=== PATIENT | male | born 1945 | race Caucasian/White ===

== ENCOUNTER 2019-06-08 10:42 | Emergency (ER) | payer BC, MEDICAID ==
[2019-06-08 11:27] LABS: ADD MAN DIFF? NO
[2019-06-08 11:32] LABS: BASOPHIL # 0.1 10^3/ul (0.0-0.1); BASOPHILS % 0.9 % (0.0-2.0); EOSINOPHILS # 0.3 10^3/ul (0.0-0.5); EOSINOPHILS % 3.1 % (0.0-7.0); HEMATOCRIT 46.3 % (42.0-52.0); HEMOGLOBIN 14.9 g/dl (14.0-18.0); LYMPHOCYTES # 2.6 10^3/ul (0.8-2.9); LYMPHOCYTES % 30.3 % (15.0-51.0); MEAN CORPUSCULAR HEMOGLOBIN 26.8 pg (29.0-33.0); MEAN CORPUSCULAR HGB CONC 32.2 g/dl (32.0-37.0); MEAN CORPUSCULAR VOLUME 83.1 fl (82.0-101.0); MEAN PLATELET VOLUME 10.9 fl (7.4-10.4); MONOCYTE # 0.7 10^3/ul (0.3-0.9); MONOCYTES % 8.1 % (0.0-11.0); NEUTROPHIL # 4.9 10^3/ul (1.6-7.5); NEUTROPHILS % 57.4 % (39.0-77.0); PLATELET COUNT 291 10^3/UL (140-415); RED BLOOD COUNT 5.57 10^6/ul (4.70-6.10); RED CELL DISTRIBUTION WIDTH 12.9 % (11.5-14.5)
[2019-06-08 11:32] LABS: WHITE BLOOD COUNT 8.6 10^3/ul (4.8-10.8)
[2019-06-08] MEDS: LIDOCAINE/MYLANTA 40 ML BTL PO (11:36)
[2019-06-08] MEDS: BELLADONNA/PHENOBARBITAL TAB PO (11:36)
[2019-06-08] MEDS: ONDANSETRON 4 MG INJ IV (11:36)
[2019-06-08] MEDS: morphine 4 MG/ML VIAL IV (11:37)
[2019-06-08 11:50] LABS: ALANINE AMINOTRANSFERASE 126 IU/L (13-69); ALBUMIN 4.7 g/dl (3.3-4.9); ALBUMIN/GLOBULIN RATIO 1.34; ALKALINE PHOSPHATASE 215 IU/L (42-121); ANION GAP 9 (5-13); ASPARTATE AMINO TRANSFERASE 69 IU/L (15-46); BILIRUBIN,INDIRECT 0.7 mg/dl (0-1.1); BILIRUBIN,TOTAL 0.7 mg/dl (0.2-1.3); BLOOD UREA NITROGEN 16 mg/dl (7-20); CALCIUM 10.2 mg/dl (8.4-10.2); CARBON DIOXIDE 29 mmol/L (21-31); CHLORIDE 104 mmol/L (97-110); CREATININE 0.79 mg/dl (0.61-1.24); GLUCOSE 76 mg/dl (70-220); SODIUM 142 mmol/L (135-144); TOTAL PROTEIN 8.2 g/dl (6.1-8.1)
[2019-06-08 11:51] LABS: INR 0.87; PROTIME 11.9 Sec (11.9-14.9); PT RATIO 0.9
[2019-06-08 11:52] LABS: PARTIAL THROMBOPLASTIN TIME 28.6 Sec (23.0-35.0)
[2019-06-08] MEDS: IOHEXOL 300MG/ML 30 ML BTL ×3 (12:59→13:00)
[2019-06-08] MEDS: SOD CHLORIDE 0.9% 100 ML (13:00)
== END 2019-06-08 14:00 | disposition home or self-care (01) ==
LOC: E/R 10:42
DX: R16.0 Hepatomegaly, not elsewhere classified (principal); I10 Essential (primary) hypertension; E11.9 Type 2 diabetes mellitus without complications; Z79.4 Long term (current) use of insulin
CPT/HCPCS: 74177; 80053; 85025; 85610; 85730; 96374; 96375; 99285-25

== ENCOUNTER 2019-07-22 07:39 | Inpatient (IN) | payer BC ==
[2019-07-22] MEDS: morphine 2 MG INJ IV (10:24)
[2019-07-22] MEDS ORDERED: ONDANSETRON 4 MG INJ IV ×2 (13:00→13:30)
[2019-07-22] MEDS ORDERED: ACETAMINOPHEN 325 MG TAB PO ×2 (13:00→13:30)
[2019-07-22] MEDS ORDERED: DOCUSATE SODIUM 100 MG CAP PO (13:30)
[2019-07-22] MEDS ORDERED: MAGNESIUM HYDROXIDE 30ML CUP PO (13:30)
[2019-07-22] MEDS ORDERED: BISACODYL 10 MG SUPP PR (13:30)
[2019-07-22] MEDS ORDERED: BISACODYL (EC) 5 MG TAB PO (13:30)
[2019-07-22] MEDS ORDERED: NACL 0.9% 3 ML SYG IV (13:30)
[2019-07-22] MEDS: SOD CHLORIDE 0.9% 1,000 ML IV ×2 (16:03→23:04)
[2019-07-22] MEDS: FAMOTIDINE 20 MG INJ IV ×2 (16:03→20:18)
[2019-07-22] MEDS: INSULIN ASPART [NOVOLOG] 3 ML PEN SC ×2 (17:39→20:18)
[2019-07-22] MEDS: INSULIN GLARGINE [LANTus] (100 UNITS/ML) SYG SC (20:16)
[2019-07-23] MEDS: ACCU-CHEK XX (02:00)
[2019-07-23] MEDS: INSULIN ASPART [NOVOLOG] 3 ML PEN SC ×5 (05:00→20:32)
[2019-07-23] MEDS: FAMOTIDINE 20 MG INJ IV ×2 (09:04→20:30)
[2019-07-23] MEDS: SOD CHLORIDE 0.9% 1,000 ML IV ×2 (09:04→18:11)
[2019-07-23] MEDS: LIDOCAINE 1% (MPF) 5 ML VIAL (11:13)
[2019-07-23] MEDS: FENTAnyl 50 MCG/ML VIAL (11:14)
[2019-07-23] MEDS: MIDAZOLAM 1 MG/ML 2 ML INJ (11:14)
[2019-07-23] MEDS: morphine 2 MG INJ IV ×2 (12:52→19:37)
[2019-07-23] MEDS ORDERED: DEXAMETHASONE 4 MG/ML 5 ML INJ (15:08)
[2019-07-23] MEDS ORDERED: ROCURONIUM 50 MG INJ (15:08)
[2019-07-23] MEDS ORDERED: CEFAZOLIN 1 GM INJ (15:08)
[2019-07-23] MEDS ORDERED: ONDANSETRON 4 MG INJ (15:08)
[2019-07-23] MEDS ORDERED: FENTAnyl 50 MCG/ML VIAL (15:08)
[2019-07-23] MEDS ORDERED: MIDAZOLAM 1 MG/ML 2 ML INJ (15:08)
[2019-07-23] MEDS ORDERED: NEOSTIGMINE 3 MG/3 ML SYRINGE (15:08)
[2019-07-23] MEDS ORDERED: GLYCOPYRROLATE 0.4 MG INJ (15:08)
[2019-07-23] MEDS ORDERED: PROPOFOL 20 ML (15:08)
[2019-07-23] MEDS: CIPROFLOXACIN 400MG/D5W 200 ML IVPB (15:13)
[2019-07-23] MEDS: INDOMETHACIN 50 MG SUPP PR (15:30)
[2019-07-23] MEDS ORDERED: SUGAMMADEX SODIUM 200 MG/2 ML VIAL IV (16:21)
[2019-07-23] MEDS ORDERED: GLUCAGON 1 MG INJ IM (17:30)
[2019-07-23] MEDS ORDERED: GLUCOSE GEL 15 GRAM TUBE PO ×2 (17:30)
[2019-07-23] MEDS ORDERED: DEXTROSE 50% 50 ML SYRINGE IV ×2 (17:30)
[2019-07-23] MEDS ORDERED: GLUCOSE GEL 15 GRAM TUBE BUCCAL (17:30)
[2019-07-23] MEDS: INSULIN GLARGINE [LANTus] (100 UNITS/ML) SYG SC (20:35)
[2019-07-24] MEDS: SOD CHLORIDE 0.9% 1,000 ML IV ×3 (01:05→22:03)
[2019-07-24] MEDS: ACCU-CHEK XX (02:00)
[2019-07-24] MEDS: INSULIN ASPART [NOVOLOG] 3 ML PEN SC ×4 (07:00→20:59)
[2019-07-24] MEDS: FAMOTIDINE 20 MG INJ IV ×2 (08:27→20:59)
[2019-07-24] MEDS: morphine 2 MG INJ IV (16:08)
[2019-07-24] MEDS: INSULIN GLARGINE [LANTus] (100 UNITS/ML) SYG SC (20:58)
[2019-07-25] MEDS: SOD CHLORIDE 0.9% 1,000 ML IV ×2 (01:11→08:24)
[2019-07-25] MEDS: ACCU-CHEK XX (01:15)
[2019-07-25] MEDS: INSULIN ASPART [NOVOLOG] 3 ML PEN SC ×4 (04:00→11:30)
[2019-07-25] MEDS: FAMOTIDINE 20 MG INJ IV (08:28)
[2019-07-25] MEDS: HYDROCODONE/APAP (5/325) TAB PO (12:13)
== END 2019-07-25 14:08 | disposition home health service (06) | DRG 435 ==
LOC: 2NE 14:11 → E/R 07:39 → 2NE 12:53
PROC: 0F798ZZ Dilation of Common Bile Duct, Via Natural or Artificial Opening Endoscopic (ICD-10-PCS; principal; 2019-07-23 15:00)
PROC: BF10YZZ Fluoroscopy of Bile Ducts using Other Contrast (ICD-10-PCS; 2019-07-23 15:00)
PROC: 0FB03ZX Excision of Liver, Percutaneous Approach, Diagnostic (ICD-10-PCS; 2019-07-23 15:14)
DX: C78.7 Secondary malignant neoplasm of liver and intrahepatic bile duct (principal); K83.1 Obstruction of bile duct; E11.9 Type 2 diabetes mellitus without complications; E78.5 Hyperlipidemia, unspecified; Z79.4 Long term (current) use of insulin; Z85.048 Personal history of other malignant neoplasm of rectum, rectosigmoid junction, and anus; Z90.49 Acquired absence of other specified parts of digestive tract
CPT/HCPCS: 36415; 74181; 74330; 76705; 77012; 80053; 80061; 80076; 81001; 81237; 81301; 82378; 82962; 83036; 83690; 83735; 84100; 85025; 85610; 85730; 86301; 88307; 88313; 88341; 88342; 93005; 96374; 99285-25